=== PATIENT | male | born 1950 | race African-American/Black ===

== ENCOUNTER → 2018-08-08 | Outpatient (CLI) | payer MEDICARE ==
[~2018-08-08] MED LIST: AMLO10TA4 PO; HYDR12.575 PO; METO100T5 PO; SIMV10TA PO
--- NOTE | 2018-08-08 16:11 | KCIC ---
EXAM: Brain MRI without contrast. HISTORY: Memory changes. TECHNIQUE: Multiplanar, multisequence magnetic resonance imaging of the brain was performed without contrast. COMPARISON: None. FINDINGS: There is no restricted diffusion to suggest acute or subacute infarction. There is no susceptibility effect to suggest hemorrhage. There is no mass effect or midline shift. The ventricles are enlarged. The degree of ventricular enlargement appears appropriate for the degree of cerebral volume loss. No suspicious white matter lesion is seen. There is evidence of lens surgery. The paranasal sinuses mastoid air cells are unremarkable. There are normal flow voids within the cerebral vessels. IMPRESSION: 1. No acute intracranial finding. 2. Ventricular enlargement. This appears to be within appropriate limits for the degree of cerebral volume loss. This is not clearly greater than expected for cerebral volume to suggest hydrocephalus. Electronically signed by: Lakeisha Ortiz MD (08/08/2018 4:07 PM) [id number]
== END | disposition home or self-care (01) ==
LOC: KCIC MRI 15:08
PROVIDERS: ATTEND Internal Medicine
DX: R41.3 Other amnesia (principal); I51.7 Cardiomegaly
CPT/HCPCS: 70551